=== PATIENT | female | born 1995 | race American Indian/Alaskan Native ===

== ENCOUNTER 2016-09-04 23:32 | Emergency (ER) | payer SELFPAY ==
[2016-09-05 00:26] VITALS: BP 118/71
[2016-09-05 01:31] LABS: Bilirubin,Urine NEG (Negative); Blood,Urine NEG (Negative); Ketones,Urine NEG (Negative); Leukocyte Esterase,Urine SM (Negative); Mucus,Urine FEW /HPF; Nitrite,Urine NEG (Negative); Protein,Urine <15 mg/dL mg/dL (Negative); Urobilinogen,Urine < 2.0 mg/dL (<2.0)
== END 2016-09-05 03:20 | disposition left against medical advice (07) ==
LOC: ED 23:32
DX: R10.30 Lower abdominal pain, unspecified (principal); Z53.21 Procedure and treatment not carried out due to patient leaving prior to being seen by health care provider
CPT/HCPCS: 81001; 81025

== ENCOUNTER 2017-02-06 16:17 | Emergency (ER) | payer MEDICAID ==
[2017-02-06 16:47] LABS: Urine Drugs of Abuse Note Disclamer
[2017-02-06 17:06] LABS: Bilirubin,Urine NEG (Negative); Blood,Urine NEG (Negative); Ketones,Urine TR mg/dL (Negative); Leukocyte Esterase,Urine NEG (Negative); Mucus,Urine FEW /HPF; Nitrite,Urine NEG (Negative); Urobilinogen,Urine < 2.0 mg/dL (<2.0)
[2017-02-06] MEDS ORDERED: LACTATED RINGERS 1,000 ML IV ONE (18:00)
[2017-02-06 18:29] VITALS: BP 130/75
== END 2017-02-06 23:20 | disposition left against medical advice (07) ==
LOC: TRG 16:17 → ED 16:17 → TRG 16:19 → EDSTATUS 18:18 → TRG 20:31 → ED 23:20
DX: Z53.21 Procedure and treatment not carried out due to patient leaving prior to being seen by health care provider (principal)
CPT/HCPCS: 59025; 80307; 81001; 93005; 93010; 96360; 96361; J7120

== ENCOUNTER 2020-12-11 17:54 | Emergency (ER) | payer MEDICAID | END 2020-12-11 18:54 | disposition left against medical advice (07) | LOC: ED 17:54 | DX: O46.91 Antepartum hemorrhage, unspecified, first trimester (principal); Z53.21 Procedure and treatment not carried out due to patient leaving prior to being seen by health care provider ==